=== PATIENT | male | born 1990 | race African-American/Black ===

== ENCOUNTER 2020-04-04 22:03 | Emergency (ER) | payer MEDICAID ==
[~2020-04-04] VITALS: Ht 185.4 cm; Wt 91.0 kg
[2020-04-04 22:06] VITALS: BP 148/96
[2020-04-04] MEDS ORDERED: CYCLOBENZAPRINE 10MG TABLET PO ONE (23:30)
[2020-04-04] MEDS ORDERED: IBUPROFEN 600MG TABLET PO ONE (23:30)
== END 2020-04-05 02:47 | disposition home or self-care (01) ==
LOC: ER 22:03
DX: S50.01XA Contusion of right elbow, initial encounter (principal); S70.02XA Contusion of left hip, initial encounter; S70.212A Abrasion, left hip, initial encounter; Z98.890 Other specified postprocedural states; V43.52XA Car driver injured in collision with other type car in traffic accident, initial encounter; Y93.89 Activity, other specified; Y92.488 Other paved roadways as the place of occurrence of the external cause
CPT/HCPCS: 73080; 73521; 73562; 99284